=== PATIENT | female | born 1980 | race American Indian/Alaskan Native ===

== ENCOUNTER 2017-10-25 21:18 | Emergency (ER) | payer SELFPAY ==
[2017-10-25 21:44] VITALS: BP 122/85
[2017-10-25] MEDS ORDERED: ASPIRIN PO ONE (21:44)
[2017-10-25 22:17] LABS: Basophils # (Auto) 0.1 K/mm3 (0.0-0.1); Basophils % (Auto) 0.6 % (0.0-1.8); Eosinophils # (Auto) 0.3 K/mm3 (0.0-0.4); Eosinophils % (Auto) 3.1 % (0.0-4.3); Hematocrit 37.5 % (30.3-42.9); Lymphocytes # (Auto) 3.4 K/mm3 (1.2-5.4); Lymphocytes % (Auto) 34.5 % (13.4-35.0); Mean Corpuscular HGB Conc 32 % (30-34); Mean Corpuscular Volume 77 fl (79-97); Monocytes % (Auto) 10.4 % (0.0-7.3); Platelet Count 365 K/mm3 (140-440); Red Blood Count 4.85 M/mm3 (3.65-5.03); Red Cell Distribution Width 15.9 % (13.2-15.2)
[2017-10-25 22:18] LABS: Mean Corpuscular Hemoglobin 25 pg (28-32)
[2017-10-25 22:29] LABS: BUN/Creatinine Ratio 18; Blood Urea Nitrogen 11 mg/dL (7-17); Calcium 9.4 mg/dL (8.4-10.2); Hemolysis Index 1
== END 2017-10-26 21:50 | disposition left against medical advice (07) ==
LOC: ED 21:18
DX: R07.89 Other chest pain (principal); Z53.21 Procedure and treatment not carried out due to patient leaving prior to being seen by health care provider
CPT/HCPCS: 36415; 80048; 84484; 85025; 93005; 93010

== ENCOUNTER 2020-11-10 08:32 | Emergency (ER) | payer MEDICAID, OTHER, SELFPAY ==
[2020-11-10] MEDS ORDERED: SODIUM CHLORIDE 0.9% 1000 ML 1,000 ML IV ONE ×3 (08:59→12:53)
--- NOTE | 2020-11-10 09:13 | Emergency Department Report ---
ED Shortness of Breath HPI - General Chief Complaint: Dyspnea/Respdistress Stated Complaint: SOB,ELEVATED Time Seen by Provider: 11/10/20 08:49 Source: patient Mode of arrival: Stretcher Limitations: No Limitations - History of Present Illness Initial Comments: 40-year-old female with a past medical history of "anxiety" (self diagnosed) and asthma recent Covid pneumonia presents to the hospital with complaints of shortness of breath. Patient states she was lying down and felt short of breath and therefore called EMS. EMS reports the patient had a room air saturation 97% and a temperature 97.4 but she had tachycardia as high as 180s. Albuterol i nhaler was initiated but discontinued due to tachycardia. Patient did state that she did feel some palpitations earlier but denies palpitations in the ED with heart rate of 150s on the monitor. She denies chest pain. Patient reports that she had a positive Covid test on October 28. She developed a low oxygen level and went to [facility] on October 28 and was admitted for Covid pneumonia with hypoxia. She states she had a CT angiogram that was negative for pulmonary embolism and was treated with IV medication for Covid as well as blood thinners. She was discharged on potassium and steroids with last dose of steroid due today. Patient was discharged from the hospital 1 week ago on November 03. Patient states she has been feeling okay other than increased cough, phlegm, and shortness of breath at nighttime. She denies previous history of PE/DVT, control use, dyspnea exertion, calf tenderness, leg edema, fevers, smoking, history of intubations, history of hospitalizations secondary to asthma. Patient does not take any medication for anxiety and denies alcohol or drug abuse. Patient is not vaccinated for Covid - Related Data Previous Rx's Medication Instructions Recorded Last Taken Type Benzonatate [Tessalon Perles] 100 mg PO Q8HR PRN #20 capsule 11/10/20 Unknown Rx Allergies Allergy/AdvReac Type Severity Reaction Status Date / Time No Known Allergies Allergy Verified 10/27/17 09:09 ED Review of Systems ROS: Stated complaint: SOB,ELEVATED Other details as noted in HPI Comment: All other systems reviewed and negative ED Past Medical Hx - Past Medical History Previous Medical History?: Yes Hx GERD: Yes Hx Asthma: Yes - Surgical History Additional Surgical History: - Social History Smoking Status: Never Smoker Substance Use Type: None - Medications Home Medications: Home Medications Medication Instructions Recorded Confirmed Last Taken Type Benzonatate [Tessalon Perles] 100 mg PO Q8HR PRN #20 capsule 11/10/20 Unknown Rx ED Physical Exam - General Limitations: No Limitations - Other Other exam information: General: No acute distress Head: Atraumatic Eyes: normal appearance ENT: Moist mucous membranes Neck: Normal appearance, no midline tenderness Chest: Clear to auscultation bilateral, no respiratory distress or accessory muscle use CV: Tachycardic regular rhythm Abdomen: Soft, normal bowel sounds, nontender, nondistended, no rebound or guarding Back: Normal inspection Extremity: Normal inspection, full range of motion, no calf tenderness or leg Neuro: Alert O x 3, no facial asymmetry, speech clear, no gross motor sensory deficit Psych: Appropriate behavior Skin: No rash ED Course Vital Signs 11/10/20 11/10/20 11/10/20 08:37 08:40 08:46 Temperature 97.4 F L Pulse Rate 153 H 146 H Respiratory 13 20 23 Rate Blood Pressure 96/78 Blood Pressure 138/88 [Right] O2 Sat by Pulse 97 Oximetry 11/10/20 11/10/20 11/10/20 09:00 09:16 09:30 Temperature Pulse Rate 129 H 126 H 120 H Respiratory 25 H 26 H 25 H Rate Blood Pressure 96/78 96/78 96/78 Blood Pressure [Right] O2 Sat by Pulse Oximetry 11/10/20 11/10/20 11/10/20 09:46 10:00 10:16 Temperature Pulse Rate 112 H 115 H 135 H Respiratory 24 27 H 25 H Rate Blood Pressure 149/82 96/78 96/78 Blood Pressure [Right] O2 Sat by Pulse Oximetry 11/10/20 11/10/20 11/10/20 10:30 10:46 11:00 Temperature Pulse Rate 100 H 126 H 102 H Respiratory 22 17 17 Rate Blood Pressure 96/78 96/78 149/82 Blood Pressure [Right] O2 Sat by Pulse 96 98 94 Oximetry 11/10/20 11/10/20 11/10/20 11:16 11:30 11:46 Temperature Pulse Rate 96 H 119 H 113 H Respiratory 22 15 12 Rate Blood Pressure 152/85 158/83 158/83 Blood Pressure [Right] O2 Sat by Pulse 96 97 96 Oximetry 11/10/20 11/10/20 11/10/20 12:00 12:22 12:30 Temperature Pulse Rate 116 H Respiratory 17 Rate Blood Pressure 158/83 139/73 139/73 Blood Pressure [Right] O2 Sat by Pulse 97 86 99 Oximetry 11/10/20 11/10/20 11/10/20 12:46 13:00 13:16 Temperature Pulse Rate 106 H 130 H Respiratory 19 25 H Rate Blood Pressure 139/73 136/85 139/73 Blood Pressure [Right] O2 Sat by Pulse 96 96 95 Oximetry 11/10/20 11/10/20 11/10/20 13:30 13:46 14:00 Temperature Pulse Rate 108 H 103 H 110 H Respiratory 18 26 H 25 H Rate Blood Pressure 139/73 139/73 136/85 Blood Pressure [Right] O2 Sat by Pulse 100 96 97 Oximetry 11/10/20 11/10/20 11/10/20 14:16 14:30 14:46 Temperature Pulse Rate 98 H 100 H 102 H Respiratory 24 25 H 26 H Rate Blood Pressure 130/83 130/83 130/83 Blood Pressure [Right] O2 Sat by Pulse 100 97 98 Oximetry 11/10/20 11/10/20 15:00 15:16 Temperature Pulse Rate 106 H Respiratory 13 20 Rate Blood Pressure 118/73 118/73 Blood Pressure [Right] O2 Sat by Pulse 98 97 Oximetry - Reevaluation(s) Reevaluation #1: 11/10/20 14:56 hr improving, as low as 99 at rest but increases to 118 when I am speaking with patient - Consultations Consultation #1: 11/10/20 09:[address] Orozco on-call portable power tool repairer to review EKG. Agrees that rhythm appears to be sinus tachycardia and not SVT 11/10/20 14:56 Dr Galvan, ID paged. 11/10/20 15:[address] Galvan infectious disease physician. Reviewed results and patient presentation. He does not recommend any specific antibiotics or infectious treatment at this time based on lab at this time. 11/10/20 15:[address] Orozco regarding cardiology on-call once again. Low likelihood for myocarditis given lack of chest pain. 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 No specific cardiac treatment recommended at this time ED Medical Decision Making - Lab Data Result diagrams: 11/10/20 10:00 11/10/20 10:00 Lab Results 11/10/20 11/10/20 11/10/20 Range/Units 09:14 09:14 09:34 WBC (4.5-11.0) K/mm3 RBC (3.65-5.03) M/mm3 Hgb (10.1-14.3) gm/dl Hct (30.3-42.9) % MCV (79-97) fl MCH (28-32) pg MCHC (30-34) % RDW (13.2-15.2) % Plt Count (140-440) K/mm3 Lymph % (Auto) (13.4-35.0) % [place] % (Auto) (0.0-7.3) % Eos % (Auto) (0.0-4.3) % Baso % (Auto) (0.0-1.8) % Lymph # (Auto) (1.2-5.4) K/mm3 [place] # (Auto) (0.0-0.8) K/mm3 Eos # (Auto) (0.0-0.4) K/mm3 Baso # (Auto) (0.0-0.1) K/mm3 Seg Neutrophils % (40.0-70.0) % Seg Neutrophils # (1.8-7.7) K/mm3 D-Dimer 275.23 H (0-234) ng/mlDDU Sodium (137-145) mmol/L Potassium (3.6-5.0) mmol/L Chloride (98-107) mmol/L Carbon Dioxide (22-30) mmol/L Anion Gap mmol/L BUN (7-17) mg/dL Creatinine (0.6-1.2) mg/dL Estimated GFR ml/min BUN/Creatinine Ratio % Glucose (65-100) mg/dL Lactic Acid (0.7-2.0) mmol/L Calcium (8.4-10.2) mg/dL Ferritin (10.0-200.0) ng/mL Total Bilirubin (0.1-1.2) mg/dL AST (5-40) units/L ALT (7-56) units/L Alkaline Phosphatase (35-129) units/L Lactate Dehydrogenase (91-180) units/L Troponin T (0.00-0.029) ng/mL C-Reactive Protein (0.00-1.30) mg/dL Total Protein (6.3-8.2) g/dL Albumin (3.9-5) g/dL Albumin/Globulin Ratio % Procalcitonin (<0.15) ng/mL TSH (0.270-4.200) mlU/mL Free T4 (0.76-1.46) ng/dL HCG, Qual (Negative) Urine Opiates Screen Negative Urine Methadone Screen Negative Ur Barbiturates Screen Negative Ur Phencyclidine Scrn Negative Ur Amphetamines Screen Negative U Benzodiazepines Scrn Negative Urine Cocaine Screen Negative U Marijuana (THC) Screen Negative Drugs of Abuse Note Disclamer Coronavirus (PCR) (Negative) 11/10/20 11/10/20 11/10/20 Range/Units 09:37 09:37 10:00 WBC (4.5-11.0) K/mm3 RBC (3.65-5.03) M/mm3 Hgb (10.1-14.3) gm/dl Hct (30.3-42.9) % MCV (79-97) fl MCH (28-32) pg MCHC (30-34) % RDW (13.2-15.2) % Plt Count (140-440) K/mm3 Lymph % (Auto) (13.4-35.0) % [place] % (Auto) (0.0-7.3) % Eos % (Auto) (0.0-4.3) % Baso % (Auto) (0.0-1.8) % Lymph # (Auto) (1.2-5.4) K/mm3 [place] # (Auto) (0.0-0.8) K/mm3 Eos # (Auto) (0.0-0.4) K/mm3 Baso # (Auto) (0.0-0.1) K/mm3 Seg Neutrophils % (40.0-70.0) % Seg Neutrophils # (1.8-7.7) K/mm3 D-Dimer (0-234) ng/mlDDU Sodium (137-145) mmol/L Potassium (3.6-5.0) mmol/L Chloride (98-107) mmol/L Carbon Dioxide (22-30) mmol/L Anion Gap mmol/L BUN (7-17) mg/dL Creatinine (0.6-1.2) mg/dL Estimated GFR ml/min BUN/Creatinine Ratio % Glucose (65-100) mg/dL Lactic Acid (0.7-2.0) mmol/L Calcium (8.4-10.2) mg/dL Ferritin (10.0-200.0) ng/mL Total Bilirubin (0.1-1.2) mg/dL AST (5-40) units/L ALT (7-56) units/L Alkaline Phosphatase (35-129) units/L Lactate Dehydrogenase (91-180) units/L Troponin T < 0.010 (0.00-0.029) ng/mL C-Reactive Protein (0.00-1.30) mg/dL Total Protein (6.3-8.2) g/dL Albumin (3.9-5) g/dL Albumin/Globulin Ratio % Procalcitonin < 0.05 (<0.15) ng/mL TSH 0.155 L (0.270-4.200) mlU/mL Free T4 1.76 H (0.76-1.46) ng/dL HCG, Qual Negative (Negative) Urine Opiates Screen Urine Methadone Screen Ur Barbiturates Screen Ur Phencyclidine Scrn Ur Amphetamines Screen U Benzodiazepines Scrn Urine Cocaine Screen U Marijuana (THC) Screen Drugs of Abuse Note Coronavirus (PCR) (Negative) 11/10/20 11/10/20 11/10/20 Range/Units 10:00 10:00 10:00 WBC 11.8 H (4.5-11.0) K/mm3 RBC 4.91 (3.65-5.03) M/mm3 Hgb 11.7 (10.1-14.3) gm/dl Hct 37.1 (30.3-42.9) % MCV 76 L (79-97) fl MCH 24 L (28-32) pg MCHC 32 (30-34) % RDW 16.3 H (13.2-15.2) % Plt Count 545 H (140-440) K/mm3 Lymph % (Auto) 6.1 L (13.4-35.0) % [place] % (Auto) 6.4 (0.0-7.3) % Eos % (Auto) 0.0 (0.0-4.3) % Baso % (Auto) 0.1 (0.0-1.8) % Lymph # (Auto) 0.7 L (1.2-5.4) K/mm3 [place] # (Auto) 0.8 (0.0-0.8) K/mm3 Eos # (Auto) 0.0 (0.0-0.4) K/mm3 Baso # (Auto) 0.0 (0.0-0.1) K/mm3 Seg Neutrophils % 87.4 H (40.0-70.0) % Seg Neutrophils # 10.3 H (1.8-7.7) K/mm3 D-Dimer (0-234) ng/mlDDU Sodium 139 (137-145) mmol/L Potassium 3.9 (3.6-5.0) mmol/L Chloride 104.5 (98-107) mmol/L Carbon Dioxide 21 L (22-30) mmol/L Anion Gap 17 mmol/L BUN 8 (7-17) mg/dL Creatinine 0.5 L (0.6-1.2) mg/dL Estimated GFR > 60 ml/min BUN/Creatinine Ratio 16 % Glucose 194 H (65-100) mg/dL Lactic Acid 2.20 H* (0.7-2.0) mmol/L Calcium 10.0 (8.4-10.2) mg/dL Ferritin (10.0-200.0) ng/mL Total Bilirubin 0.30 (0.1-1.2) mg/dL AST 17 (5-40) units/L ALT 32 (7-56) units/L Alkaline Phosphatase 66 (35-129) units/L Lactate Dehydrogenase 263 H (91-180) units/L Troponin T (0.00-0.029) ng/mL C-Reactive Protein 0.20 (0.00-1.30) mg/dL Total Protein 7.4 (6.3-8.2) g/dL Albumin 4.0 (3.9-5) g/dL Albumin/Globulin Ratio 1.2 % Procalcitonin (<0.15) ng/mL TSH (0.270-4.200) mlU/mL Free T4 (0.76-1.46) ng/dL HCG, Qual (Negative) Urine Opiates Screen Urine Methadone Screen Ur Barbiturates Screen Ur Phencyclidine Scrn Ur Amphetamines Screen U Benzodiazepines Scrn Urine Cocaine Screen U Marijuana (THC) Screen Drugs of Abuse Note Coronavirus (PCR) (Negative) 11/10/20 11/10/20 11/10/20 Range/Units 10:00 12:01 14:43 WBC (4.5-11.0) K/mm3 RBC (3.65-5.03) M/mm3 Hgb (10.1-14.3) gm/dl Hct (30.3-42.9) % MCV (79-97) fl MCH (28-32) pg MCHC (30-34) % RDW (13.2-15.2) % Plt Count (140-440) K/mm3 Lymph % (Auto) (13.4-35.0) % [place] % (Auto) (0.0-7.3) % Eos % (Auto) (0.0-4.3) % Baso % (Auto) (0.0-1.8) % Lymph # (Auto) (1.2-5.4) K/mm3 [place] # (Auto) (0.0-0.8) K/mm3 Eos # (Auto) (0.0-0.4) K/mm3 Baso # (Auto) (0.0-0.1) K/mm3 Seg Neutrophils % (40.0-70.0) % Seg Neutrophils # (1.8-7.7) K/mm3 D-Dimer (0-234) ng/mlDDU Sodium (137-145) mmol/L Potassium (3.6-5.0) mmol/L Chloride (98-107) mmol/L Carbon Dioxide (22-30) mmol/L Anion Gap mmol/L BUN (7-17) mg/dL Creatinine (0.6-1.2) mg/dL Estimated GFR ml/min BUN/Creatinine Ratio % Glucose (65-100) mg/dL Lactic Acid 2.60 H* 2.20 H* (0.7-2.0) mmol/L Calcium (8.4-10.2) mg/dL Ferritin 35.7 (10.0-200.0) ng/mL Total Bilirubin (0.1-1.2) mg/dL AST (5-40) units/L ALT (7-56) units/L Alkaline Phosphatase (35-129) units/L Lactate Dehydrogenase (91-180) units/L Troponin T (0.00-0.029) ng/mL C-Reactive Protein (0.00-1.30) mg/dL Total Protein (6.3-8.2) g/dL Albumin (3.9-5) g/dL Albumin/Globulin Ratio % Procalcitonin (<0.15) ng/mL TSH (0.270-4.200) mlU/mL Free T4 (0.76-1.46) ng/dL HCG, Qual (Negative) Urine Opiates Screen Urine Methadone Screen Ur Barbiturates Screen Ur Phencyclidine Scrn Ur Amphetamines Screen U Benzodiazepines Scrn Urine Cocaine Screen U Marijuana (THC) Screen Drugs of Abuse Note Coronavirus (PCR) (Negative) - EKG Data -: EKG Interpreted by Me EKG shows normal: sinus rhythm, ST-T waves (No STEMI) Rate: tachycardia (150) - EKG Data 11/10/20 09:14 EMS EKG performed 8:03 sinus HR 131 8:19AM: Sinus tach heart rate 172 - Radiology Data Radiology results: report reviewed CHEST 1 VIEW INDICATION / CLINICAL INFORMATION: sob. COMPARISON: None available. FINDINGS: SUPPORT DEVICES: None. HEART / MEDIASTINUM: No significant abnormality. LUNGS / PLEURA: No significant pulmonary or pleural abnormality. No pneumothorax. ADDITIONAL FINDINGS: No significant additional findings. IMPRESSION: 1. No acute findings. CTA CHEST WITH CONTRAST INDICATION / CLINICAL INFORMATION: sob, tachycardia, recent covid OMNIPAQUE 350 100ML. TECHNIQUE: Axial CT images were obtained through the chest after injection of IV contrast. 3 plane MIP and/or 3D reconstructions were produced. All CT scans at this location are performed using CT dose reduction for ALARA by means of automated exposure control. COMPARISON: None available. FINDINGS: PULMONARY ARTERIES: No pulmonary emboli. THORACIC AORTA: No significant abnormality. HEART: No significant abnormality. CORONARY ARTERY CALCIFICATION: None. MEDIASTINUM / ELIZABETH: No significant abnormality. PLEURA: No pleural effusion. No pneumothorax. LUNGS: Patchy groundglass and reticular opacities involving the bilateral lower lobes and inferior lingula ADDITIONAL FINDINGS: None. UPPER ABDOMEN: No acute findings. SKELETAL STRUCTURES: No significant osseous abnormality. IMPRESSION: 1. No CT evidence for pulmonary embolism. 2. Multilobar pneumonia, suspicious for atypical and viral etiology. - Medical Decision Making 40-year-old female presents to the hospital with cough, shortness of breath, and tachycardia. Heart rate has improved with IV fluids. Patient symptoms are a lso improved. Patient complains of shortness of breath primarily with coughing and denies dyspnea exertion. No ambulatory oxygen desaturation. CT angiogram negative for pulmonary embolism or positive for persistent infiltrates. Repeat Covid test is negative. Prolactin negative. Lactic acid has not increased significant during ED stay and is decreasing with IV fluids. Patient treated with 3 L of normal saline and Tessalon Perles for cough. Breath sounds clear. Case discussed with infectious disease who does not recommend any infectious treatment at this time. Case discussed with cardiology who does not recommend any specific cardiac treatment at this time. Symptoms suggestive of post Covid syndrome and possible volume depletion given positive response to IV fluids. Patient's TSH is slightly lower than normal as well as slightly elevated T4. Patient does not have signs of thyroid storm at this time and outpatient endocrine follow-up will be advised. I also suspect that patient has a component of anxiety. Resting heart rate is 100 and then when I entered the room goes up to 130s. Then while talking to patient heart rate settled back down to 100. I am hesitant to prescribe a benzodiazepine at this time due to risk of respiratory depression and risk of habitual use and would advise follow-up for definitive treatment. patient will be discharged to follow-up with primary care and to continue to monitor oxygen saturation, heart rate, and symptoms as outpatient Diagnosis, discharge planning and follow-up explained to patient and questions were answered prior to discharge Critical Care Time: No Critical care attestation.: If time is entered above; I have spent that time in minutes in the direct care of this critically ill patient, excluding procedure time. ED Disposition Clinical Impression: Post-COVID syndrome, Tachycardia, Low TSH level, Anxiety Disposition: HOME / SELF CARE / HOMELESS Is pt being admited?: No Does the pt Need Aspirin: No Condition: Stable Instructions: COVID-19, Sinus Tachycardia, Managing Anxiety, Adult Additional Instructions: Take the medication as prescribed. Follow-up with your doctor or doctor/clinic provided. Return if symptoms worsen as indicated by your discharge instructions . Prescriptions: Benzonatate [Tessalon Perles] 100 mg PO Q8HR PRN #20 capsule PRN Reason: Cough Referrals: PRIMARY CARE, [Primary Care Provider] - 3-5 Days [facility] [Provider Group] - 3-5 Days ([employer] for thyroid evaluation) FINA GILLESPIE MD [Staff Physician] - 3-5 Days (Primary care doctor) [facility] [Provider Group] - 3-5 Days (Primary care clinic) Time of Disposition: 16:02
[2020-11-10 09:32] LABS: Amphetamine Screen,Urine Negative; Benzodiazepines Screen,Urine Negative; Cannabinoid Screen,Urine Negative; Cocaine Screen,Urine Negative; Methadone Screen,Urine Negative; Opiate Screen,Urine Negative
[2020-11-10 10:39] LABS: Alanine Aminotransferase 32 units/L (7-56); Blood Urea Nitrogen 8 mg/dL (7-17); Hemolysis Index 8
[2020-11-10 10:44] LABS: Basophils % (Auto) 0.1 % (0.0-1.8); Hematocrit 37.1 % (30.3-42.9); Hemoglobin 11.7 gm/dl (10.1-14.3); Lymphocytes # (Auto) 0.7 K/mm3 (1.2-5.4); Lymphocytes % (Auto) 6.1 % (13.4-35.0); Mean Corpuscular HGB Conc 32 % (30-34); Mean Corpuscular Volume 76 fl (79-97); Monocytes # (Auto) 0.8 K/mm3 (0.0-0.8); Monocytes % (Auto) 6.4 % (0.0-7.3); Platelet Count 545 K/mm3 (140-440); Red Blood Count 4.91 M/mm3 (3.65-5.03); Red Cell Distribution Width 16.3 % (13.2-15.2)
[2020-11-10 11:09] LABS: BUN/Creatinine Ratio 16
--- NOTE | 2020-11-10 13:05 | Cat Scan Report ---
CTA CHEST WITH CONTRAST INDICATION / CLINICAL INFORMATION: sob, tachycardia, recent covid OMNIPAQUE 350 100ML. TECHNIQUE: Axial CT images were obtained through the chest after injection of IV contrast. 3 plane [place] P and/or 3D reconstructions were produced. All CT scans at this location are performed using CT dose reduction for ALARA by means of automated exposure control. COMPARISON: None available. FINDINGS: PULMONARY ARTERIES: No pulmonary emboli. THORACIC AORTA: No significant abnormality. HEART: No significant abnormality. CORONARY ARTERY CALCIFICATION: None. MEDIASTINUM / ELIZABETH: No significant abnormality. PLEURA: No pleural effusion. No pneumothorax. LUNGS: Patchy groundglass and reticular opacities involving the bilateral lower lobes and inferior li ngula ADDITIONAL FINDINGS: None. UPPER ABDOMEN: No acute findings. SKELETAL STRUCTURES: No significant osseous abnormality. IMPRESSION: 1. No CT evidence for pulmonary embolism. 2. Multilobar pneumonia, suspicious for atypical and viral etiology. Signer Name: Donn Rollins MD Signed: 11/10/2020 1:01 PM Workstation Name: [id number]
--- NOTE | 2020-11-10 13:24 | XRay Report ---
CHEST 1 VIEW INDICATION / CLINICAL INFORMATION: sob. COMPARISON: None available. FINDINGS: SUPPORT DEVICES: None. HEART / MEDIASTINUM: No significant abnormality. LUNGS / PLEURA: No significant pulmonary or pleural abnormality. No pneumothorax. ADDITIONAL FINDINGS: No significant additional findings. IMPRESSION: 1. No acute findings. Signer Name: Donn Rollins MD Signed: 11/10/2020 1:20 PM Workstation Name: [id number]
[2020-11-10 13:37] LABS: Free T4 (Free Thyroxine) 1.76 ng/dL (0.76-1.46)
[2020-11-10] MEDS ORDERED: BENZONATATE 100 MG CAP PO ONE (14:54)
[2020-11-10 16:48] VITALS: BP 112/71
--- NOTE | 2020-11-10 17:25 | Electrocardiograph Report ---
[facility] Test Date: 2020-11-10 Test Time: 08:39:20 Pat Name: PRASANNA JURADO Department: Room: Gender: F Pelts Skinner: ROBERT GONZALEZB: 1980 Requested By: NYASIA MICHELLE Order Number: [id number] Reading MD: Evan Washington Measurements Intervals [place] Rate: 150 P: 55 [place]: 101 QRS: -75 QRSD: 75 T: -25 QT: 289 QTc: 457 Interpretive Statements Sinus or supraventricular tachycardia Inferior infarct, old Consider old anterior infarct No previous ECG available for comparison Electronically Signed On 11-10-2020 17:25:35 EDT by Evan Washington
== END 2020-11-10 17:00 | disposition home or self-care (01) ==
LOC: ED 08:32
DX: F41.9 Anxiety disorder, unspecified (principal); B94.8 Sequelae of other specified infectious and parasitic diseases; R79.89 Other specified abnormal findings of blood chemistry; R00.0 Tachycardia, unspecified; K21.9 Gastro-esophageal reflux disease without esophagitis; J45.909 Unspecified asthma, uncomplicated; Z20.822 Contact with and (suspected) exposure to COVID-19; Z98.890 Other specified postprocedural states; Z79.899 Other long term (current) drug therapy
CPT/HCPCS: 36415; 71045; 71275; 80053; 80307; 82140; 82728; 83615; 84145; 84439; 84443; 84484; 84703; 85025; 85379; 86140; 87040; 93005; 99285; J7030; Q9967; U0003

== ENCOUNTER 2020-11-14 05:51 | Emergency (ER) | payer SELFPAY ==
[2020-11-14 05:55] VITALS: BP 122/79
[2020-11-14] MEDS ORDERED: ASPIRIN 325 MG TAB PO ONE (05:56)
--- NOTE | 2020-11-14 06:26 | XRay Report ---
CHEST 2 VIEWS INDICATION / CLINICAL INFORMATION: Chest pain FINDINGS: SUPPORT DEVICES: None. HEART / MEDIASTINUM: No significant abnormality. LUNGS / PLEURA: No significant pulmonary or pleural abnormality. No pneumothorax. ADDITIONAL FINDINGS: No significant additional findings. IMPRESSION: 1. No acute findings. Signer Name: Sheldon Winters MD Signed: 11/14/2020 6:21 AM Workstation Name: [id number]
[2020-11-14 06:34] LABS: Basophils % (Auto) 0.2 % (0.0-1.8); Eosinophils % (Auto) 0.3 % (0.0-4.3); Hematocrit 36.7 % (30.3-42.9); Hemoglobin 11.5 gm/dl (10.1-14.3); Lymphocytes # (Auto) 3.5 K/mm3 (1.2-5.4); Lymphocytes % (Auto) 30.2 % (13.4-35.0); Mean Corpuscular HGB Conc 32 % (30-34); Mean Corpuscular Volume 75 fl (79-97); Monocytes # (Auto) 1.2 K/mm3 (0.0-0.8); Monocytes % (Auto) 10.6 % (0.0-7.3); Platelet Count 547 K/mm3 (140-440); Red Blood Count 4.89 M/mm3 (3.65-5.03); Red Cell Distribution Width 16.6 % (13.2-15.2)
[2020-11-14 06:51] LABS: Alanine Aminotransferase 25 units/L (7-56); Albumin 3.7 g/dL (3.9-5); BUN/Creatinine Ratio 18; Blood Urea Nitrogen 9 mg/dL (7-17); Calcium 9.5 mg/dL (8.4-10.2); Hemolysis Index 6
--- NOTE | 2020-11-14 10:15 | Emergency Department Report ---
- General Chief Complaint: Chest Pain Stated Complaint: CHEST PAIN Time Seen by Provider: 11/14/20 10:07 Source: patient Mode of arrival: Ambulatory Limitations: No Limitations - History of Present Illness Initial Comments: Patient is a 40-year-old female presents emergency room complaints of a persistent dry cough for 3 weeks. She states that she tested positive for COVID-19 on October 28. She reports that she was hospitalized for 5 days due to Covid pneumonia but was never placed on a ventilator or BiPAP. She did not have to go home on oxygen. She states that she was discharged home on blood thinners and reports she has been taking them. She states that her cough is worse at night and after coughing she feels short of breath. She has no shortness of breath currently. She denies any pleuritic pain, chest pain, leg swelling, fever, vomiting, diarrhea. Past medical history of asthma and GERD. No allergies to medications. Patient had a CTA chest performed at this facility on 11/10/2020 which showed no signs of PE. Patient did not get vaccinated for COVID-19. She did not follow-up with a primary care doctor. - Related Data Previous Rx's Medication Instructions Recorded Last Taken Type Benzonatate [Tessalon Perles] 100 mg PO Q8HR PRN #20 capsule 11/14/20 Unknown Rx guaiFENesin ER [Mucinex ER] 600 mg PO Q12H #14 tablet.er 11/14/20 Unknown Rx Allergies Allergy/AdvReac Type Severity Reaction Status Date / Time No Known Allergies Allergy Verified 10/27/17 09:09 ED Review of Systems ROS: Stated complaint: CHEST PAIN Other details as noted in HPI Comment: All other systems reviewed and negative ED Past Medical Hx - Past Medical History Previous Medical History?: Yes Hx GERD: Yes Hx Asthma: Yes - Surgical History Past Surgical History?: Yes Additional Surgical History: - Social History Smoking Status: Never Smoker Substance Use Type: None - Medications Home Medications: Home Medications Medication Instructions Recorded Confirmed Last Taken Type Benzonatate [Tessalon Perles] 100 mg PO Q8HR PRN #20 capsule 11/14/20 Unknown Rx guaiFENesin ER [Mucinex ER] 600 mg PO Q12H #14 tablet.er 11/14/20 Unknown Rx ED Physical Exam - General Limitations: No Limitations General appearance: alert, in no apparent distress - Head Head exam: Present: atraumatic, normocephalic - Eye Eye exam: Present: normal appearance - ENT ENT exam: Present: mucous membranes moist - Respiratory Respiratory exam: Present: normal lung sounds bilaterally. Absent: respiratory distress, wheezes, rales, rhonchi, stridor, chest wall tenderness, accessory muscle use, decreased breath sounds, prolonged expiratory - Cardiovascular Cardiovascular Exam: Present: regular rate, normal rhythm, normal heart sounds. Absent: systolic murmur, diastolic murmur, rubs, gallop - Neurological Exam Neurological exam: Present: alert, oriented X3 - Psychiatric Psychiatric exam: Present: normal affect, normal mood - Skin Skin exam: Present: warm, dry, intact ED Course Vital Signs 11/14/20 11/14/20 05:52 10:13 Temperature 98.4 F Pulse Rate 85 78 Respiratory 18 Rate Blood Pressure 122/79 [Left] O2 Sat by Pulse 96 100 Oximetry ED Medical Decision Making - Lab Data Result diagrams: 11/14/20 06:02 11/14/20 06:02 Lab Results 11/14/20 11/14/20 11/14/20 Range/Units 06:02 06:02 09:19 WBC 11.4 H (4.5-11.0) K/mm3 RBC 4.89 (3.65-5.03) M/mm3 Hgb 11.5 (10.1-14.3) gm/dl Hct 36.7 (30.3-42.9) % MCV 75 L (79-97) fl MCH 24 L (28-32) pg MCHC 32 (30-34) % RDW 16.6 H (13.2-15.2) % Plt Count 547 H (140-440) K/mm3 Lymph % (Auto) 30.2 (13.4-35.0) % [place] % (Auto) 10.6 H (0.0-7.3) % Eos % (Auto) 0.3 (0.0-4.3) % Baso % (Auto) 0.2 (0.0-1.8) % Lymph # (Auto) 3.5 (1.2-5.4) K/mm3 [place] # (Auto) 1.2 H (0.0-0.8) K/mm3 Eos # (Auto) 0.0 (0.0-0.4) K/mm3 Baso # (Auto) 0.0 (0.0-0.1) K/mm3 Seg Neutrophils % 58.7 (40.0-70.0) % Seg Neutrophils # 6.7 (1.8-7.7) K/mm3 Sodium 134 L (137-145) mmol/L Potassium 3.5 L (3.6-5.0) mmol/L Chloride 99.5 (98-107) mmol/L Carbon Dioxide 26 (22-30) mmol/L Anion Gap 12 mmol/L BUN 9 (7-17) mg/dL Creatinine 0.5 L (0.6-1.2) mg/dL Estimated GFR > 60 ml/min BUN/Creatinine Ratio 18 % Glucose 110 H (65-100) mg/dL Calcium 9.5 (8.4-10.2) mg/dL Total Bilirubin 0.60 (0.1-1.2) mg/dL AST 13 (5-40) units/L ALT 25 (7-56) units/L Alkaline Phosphatase 62 (35-129) units/L Troponin T < 0.010 < 0.010 (0.00-0.029) ng/mL Total Protein 6.9 (6.3-8.2) g/dL Albumin 3.7 L (3.9-5) g/dL Albumin/Globulin Ratio 1.2 % - EKG Data EKG shows normal: sinus rhythm, axis, intervals, QRS complexes, ST-T waves Rate: normal - Radiology Data Radiology results: report reviewed Ordering Physician: PASCUAL HAYNES MD Date of Service: 11/14/20 Procedure(s): XR chest routine 2V Accession Number(s): [id number] cc: ED MD [place] Fluoro Time In Minutes: CHEST 2 VIEWS INDICATION / CLINICAL INFORMATION: Chest pain FINDINGS: SUPPORT DEVICES: None. HEART / MEDIASTINUM: No significant abnormality. LUNGS / PLEURA: No significant pulmonary or pleural abnormality. No pneumothorax. ADDITIONAL FINDINGS: No significant additional findings. IMPRESSION: 1. No acute findings. Signer Name: Sheldon Winters MD Signed: 11/14/2020 6:21 AM Workstation Name: [id number] Transcribed By: Dictated By: Sheldon Winters MD Electronically Authenticated By: Sheldon Winters MD Signed Date/Time: 11/14/20620 DD/ 7 TD/TT: - Medical Decision Making Patient is a 40-year-old female presents emergency room complaints of a persistent dry cough for 3 weeks. She states that she tested positive for COVID-19 on October 28. She reports that she was hospitalized for 5 days due to Covid pneumonia but was never placed on a ventilator or BiPAP. She did not have to go home on oxygen. She states that she was discharged home on blood thinners and reports she has been taking them. She states that her cough is worse at night and after coughing she feels short of breath. She has no shortness of breath currently. She denies any pleuritic pain, chest pain, leg swelling, fever, vomiting, diarrhea. Past medical history of asthma and GERD. No allergies to medications. Patient had a CTA chest performed at this facility on 11/10/2020 which showed no signs of PE. Patient did not get vaccinated for COVID-19. She did not follow-up with a primary care doctor. Vitals are normal. On repeat of vitals in exam room patient's oxygen saturation is 100% on room air. No abnormality on physical examination as documented in chart. EKG is within normal limits and is improved from previous. Labs are stable. Chest x- ray with no acute process. Patient likely still continuing to experience symptoms from COVID-19. Patient had a recent CTA with no signs of PE. Patient does not have any significant cardiovascular risk factors and her EKG is normal and her troponins are negative x2. Patient given prescription for Mucinex and Tessalon Perles. Advised patient Please take medication as prescribed. Increase your fluid intake. May use a vaporizer or humidifier. May drink warm tea and soup. Follow-up with a primary care doctor. Return to emergency room for any new or worsening symptoms. Critical care attestation.: If time is entered above; I have spent that time in minutes in the direct care of this critically ill patient, excluding procedure time. ED Disposition Clinical Impression: Recurrent dry cough, Chest congestion, Post-COVID syndrome Disposition: HOME / SELF CARE / HOMELESS Is pt being admited?: No Does the pt Need Aspirin: No Condition: Stable Instructions: Cool Mist Vaporizer, COVID-19 Additional Instructions: Please take medication as prescribed. Increase your fluid intake. May use a vaporizer or humidifier. May drink warm tea and soup. Follow-up with a primary care doctor. Return to emergency room for any new or worsening symptoms. Prescriptions: guaiFENesin ER [Mucinex ER] 600 mg PO Q12H #14 tablet.er Benzonatate [Tessalon Perles] 100 mg PO Q8HR PRN #20 capsule PRN Reason: Cough Referrals: TIGIST PEÑALOZA MD [Staff Physician] - 3-5 Days [facility] [Provider Group] - 3-5 Days [facility] [Outside] - 3-5 Days [facility] [Outside] - 3-5 Days Time of Disposition: 10:18 Print Language: URDU
--- NOTE | 2020-11-14 11:19 | Electrocardiograph Report ---
[facility] Test Date: 2020-11-14 Test Time: 06:01:31 Pat Name: PRASANNA JURADO Department: Room: Gender: F Hall Coordinator: LAUREN : 1980 Requested By: ED DOC Order Number: [id number] Reading MD: Luke Foster Measurements Intervals [place] Rate: 69 P: 46 IN: 200 QRS: -3 QRSD: 77 T: 4 QT: 374 QTc: 401 Interpretive Statements Sinus rhythm Compared to ECG 11/10/2020 08:39:20 Supraventricular tachycardia no longer present Myocardial infarct finding no longer present Electronically Signed On 11-14-2020 11:19:28 EDT by Luke Foster
== END 2020-11-14 10:57 | disposition home or self-care (01) ==
LOC: ED 05:51
DX: R05 Cough (principal); R09.89 Other specified symptoms and signs involving the circulatory and respiratory systems; B94.8 Sequelae of other specified infectious and parasitic diseases; K21.9 Gastro-esophageal reflux disease without esophagitis; J45.909 Unspecified asthma, uncomplicated; Z79.899 Other long term (current) drug therapy; Z98.890 Other specified postprocedural states
CPT/HCPCS: 36415; 71046; 80053; 84484; 85025; 93005

== ENCOUNTER 2020-11-23 01:40 | Emergency (ER) | payer SELFPAY ==
[2020-11-23 02:09] VITALS: BP 134/86
== END 2020-11-23 05:39 | disposition left against medical advice (07) ==
LOC: ED 01:40
DX: R09.02 Hypoxemia (principal); Z53.21 Procedure and treatment not carried out due to patient leaving prior to being seen by health care provider
CPT/HCPCS: 93005

== ENCOUNTER 2021-02-22 12:10 | Emergency (ER) | payer SELFPAY ==
--- NOTE | 2021-02-22 12:27 | Emergency Department Report ---
HPI - General Chief Complaint: Arrhythmia/Palpitations Time Seen by Provider: 02/22/21 12:13 - HPI HPI: 40-year-old -Nepalese female presents to the emergency department from home with complaint of some palpitations as if her heartbeat is "irregular" and "it is going very fast." This started yesterday morning after the patient took some [id number] "energy pills" that her daughter had been taking. The patient says that she took 2 of them at that time. She began having the symptoms and call for EMS to evaluate her. They told her that her heartbeat was regular but the patient did not want transfer to the emergency department at that time as she thought that the contents of those energy pills would run its course. However the patient woke up this morning still with the same symptoms. She says that the energy pills had B1, B6, and caffeine. She has a past medical history of asthma and GERD. Patient also questions whether this could be related to having had Covid in October with some "long-haul "symptoms. She denies any tobacco or illicit drug use. She denies any fever, chest pain, shortness of breath, lower extremity swelling, nausea, vomiting or diaphoresis. No recent travel or sick contacts at home. ED Past Medical Hx - Past Medical History Hx GERD: Yes Hx Asthma: Yes - Surgical History Additional Surgical History: - Social History Smoking Status: Never Smoker Substance Use Type: None - Medications Home Medications: Home Medications Medication Instructions Recorded Confirmed Last Taken Type No Known Home Medications [No 02/22/21 02/22/21 Unknown History Reported Home Medications] ED Review of Systems ROS: Stated complaint: HEART PALPITATIONS Other details as noted in HPI Comment: All other systems reviewed and negative Constitutional: denies: chills, fever Eyes: denies: eye pain, vision change ENT: denies: ear pain, throat pain Respiratory: denies: cough, shortness of breath Cardiovascular: palpitations. denies: chest pain, edema Gastrointestinal: denies: abdominal pain, vomiting Genitourinary: denies: dysuria, discharge Musculoskeletal: denies: back pain, arthralgia Skin: denies: rash, lesions Neurological: denies: headache, weakness Physical Exam - Physical Exam Physical Exam: GENERAL: The patient is well-developed well-nourished. HENT: Normocephalic. Atraumatic. Patient has moist mucous membranes. EYES: Extraocular motions are intact. No nystagmus. NECK: Supple. Trachea is midline. CHEST/LUNGS: Clear to auscultation. There is no respiratory distress noted. HEART/CARDIOVASCULAR: Regular. There is no tachycardia. There is no murmur. ABDOMEN: Abdomen is soft, nontender. Patient has normal bowel sounds. SKIN: Skin is warm and dry. NEURO: The patient is awake, alert, and oriented. The patient is cooperative. The patient has no focal neurologic deficits. Normal speech. Cranial nerves II through XII grossly intact. MUSCULOSKELETAL: There is no tenderness or deformity. There is no limitation range of motion. ED Medical Decision Making - Lab Data Result diagrams: 02/22/21 13:15 02/22/21 13:15 Lab Results 02/22/21 02/22/21 02/22/21 Range/Units 13:15 13:15 13:15 WBC 7.3 (4.5-11.0) K/mm3 RBC 4.98 (3.65-5.03) M/mm3 Hgb 11.5 (10.1-14.3) gm/dl Hct 38.7 (30.3-42.9) % MCV 78 L (79-97) fl MCH 23 L (28-32) pg MCHC 30 (30-34) % RDW 17.4 H (13.2-15.2) % Plt Count 378 (140-440) K/mm3 Lymph % (Auto) 24.6 (13.4-35.0) % [place] % (Auto) 9.4 H (0.0-7.3) % Eos % (Auto) 1.2 (0.0-4.3) % Baso % (Auto) 0.6 (0.0-1.8) % Lymph # (Auto) 1.8 (1.2-5.4) K/mm3 [place] # (Auto) 0.7 (0.0-0.8) K/mm3 Eos # (Auto) 0.1 (0.0-0.4) K/mm3 Baso # (Auto) 0.0 (0.0-0.1) K/mm3 Seg Neutrophils % 64.2 (40.0-70.0) % Seg Neutrophils # 4.7 (1.8-7.7) K/mm3 Sodium 139 (137-145) mmol/L Potassium 3.7 (3.6-5.0) mmol/L Chloride 104.8 (98-107) mmol/L Carbon Dioxide 22 (22-30) mmol/L Anion Gap 16 mmol/L BUN 8 (7-17) mg/dL Creatinine 0.5 L (0.6-1.2) mg/dL Estimated GFR > 60 ml/min BUN/Creatinine Ratio 16 % Glucose 95 (65-100) mg/dL Calcium 9.0 (8.4-10.2) mg/dL Magnesium 1.90 (1.7-2.3) mg/dL Troponin T (0.00-0.029) ng/mL TSH 0.613 (0.270-4.200) mlU/mL HCG, Qual (Negative) 02/22/21 02/22/21 Range/Units 13:15 13:15 WBC (4.5-11.0) K/mm3 RBC (3.65-5.03) M/mm3 Hgb (10.1-14.3) gm/dl Hct (30.3-42.9) % MCV (79-97) fl MCH (28-32) pg MCHC (30-34) % RDW (13.2-15.2) % Plt Count (140-440) K/mm3 Lymph % (Auto) (13.4-35.0) % [place] % (Auto) (0.0-7.3) % Eos % (Auto) (0.0-4.3) % Baso % (Auto) (0.0-1.8) % Lymph # (Auto) (1.2-5.4) K/mm3 [place] # (Auto) (0.0-0.8) K/mm3 Eos # (Auto) (0.0-0.4) K/mm3 Baso # (Auto) (0.0-0.1) K/mm3 Seg Neutrophils % (40.0-70.0) % Seg Neutrophils # (1.8-7.7) K/mm3 Sodium (137-145) mmol/L Potassium (3.6-5.0) mmol/L Chloride (98-107) mmol/L Carbon Dioxide (22-30) mmol/L Anion Gap mmol/L BUN (7-17) mg/dL Creatinine (0.6-1.2) mg/dL Estimated GFR ml/min BUN/Creatinine Ratio % Glucose (65-100) mg/dL Calcium (8.4-10.2) mg/dL Magnesium (1.7-2.3) mg/dL Troponin T < 0.010 (0.00-0.029) ng/mL TSH (0.270-4.200) mlU/mL HCG, Qual Negative (Negative) - EKG Data -: EKG Interpreted by Me EKG shows normal: sinus rhythm, axis (Left axis deviation), intervals, QRS complexes (Q waves to the anteroseptal and inferior leads), ST-T waves (T wave inversion isolated to the inferior lead III) Rate: normal - EKG Data When compared to previous EKG there are: changes noted (New Q waves to the anterior and inferior leads when compared to previous from 11/23/2020) Interpretation: other (Sinus rhythm at 78 bpm, left axis deviation, normal intervals, Q waves to the anteroseptal and inferior leads, isolated T wave inversion to lead III) - Radiology Data Radiology results: image reviewed interpreted by me: Chest x-ray does not show any acute process. There are no pleural effusions, obvious pneumonia and there is no pneumothorax. - Medical Decision Making This patient presents to the emergency department with a complaint of some palpitations as if the heart is skipping a beat and beating fast, that has been going on since yesterday morning. The patient took some type of "energy pill" that appears to have about 500 mg of caffeine in it and she took 2 of them. EKG does not show any morphology consistent with ST elevation myocardial infarction or any arrhythmia. Patient's labs have been mostly unremarkable including CBC, metabolic panel, normal thyroid function, negative troponin, and the patient is not . She was reevaluated multiple times her multiple hours and says she is feeling somewhat improved. Vital signs reassuring including being afebrile. Patient appears safe for discharge home at this time. She has good outpatient follow-up with [facility] so she has been instructed to follow-up with both primary care and cardiology. She may need a Holter monitor in the near future. We discussed avoiding any further caffeine or "energy pill" use. She will return to the ER with any worsening of her symptoms or with any acute distress. Critical Care Time: No Critical care attestation.: If time is entered above; I have spent that time in minutes in the direct care of this critically ill patient, excluding procedure time. ED Disposition Clinical Impression: Palpitations Disposition: 01 HOME / SELF CARE / HOMELESS Is pt being admited?: No Condition: Stable Instructions: Palpitations Additional Instructions: Please follow-up with a primary care physician and critical care transport nurse through the [facility] system. You may need a Holter monitor in the near future. Please avoid any further consumption of the energy pills. Please try to avoid any excessive caffeine use. Increase your oral rehydration. Return to the emergency department with any worsening of your symptoms, new or concerning symptoms not addressed during this current emergency department visit, or with any acute distress. Referrals: [facility] [Other] - 2-3 Days Time of Disposition: 15:16
[2021-02-22 13:03] VITALS: BP 128/96
[2021-02-22 14:23] LABS: Basophils % (Auto) 0.6 % (0.0-1.8); Eosinophils # (Auto) 0.1 K/mm3 (0.0-0.4); Eosinophils % (Auto) 1.2 % (0.0-4.3); Lymphocytes # (Auto) 1.8 K/mm3 (1.2-5.4); Lymphocytes % (Auto) 24.6 % (13.4-35.0); Mean Corpuscular HGB Conc 30 % (30-34); Mean Corpuscular Volume 78 fl (79-97); Monocytes # (Auto) 0.7 K/mm3 (0.0-0.8); Monocytes % (Auto) 9.4 % (0.0-7.3); Platelet Count 378 K/mm3 (140-440); Red Blood Count 4.98 M/mm3 (3.65-5.03); Red Cell Distribution Width 17.4 % (13.2-15.2)
[2021-02-22 14:27] LABS: Hematocrit 38.7 % (30.3-42.9); Hemoglobin 11.5 gm/dl (10.1-14.3)
[2021-02-22 14:28] LABS: BUN/Creatinine Ratio 16; Blood Urea Nitrogen 8 mg/dL (7-17); Hemolysis Index 8
--- NOTE | 2021-02-22 14:49 | XRay Report ---
CHEST 2 VIEWS INDICATION: Palpitations. COMPARISON: 11/14/2020 FINDINGS: Support devices: None. Heart: Within normal limits. Lungs/Pleura: No acute air space or interstitial disease. No significant pleural effusion. IMPRESSION: No acute findings. Signer Name: Gregor Jacob MD Signed: 02/22/2021 2:45 PM Workstation Name: [id number]
--- NOTE | 2021-02-23 09:40 | Electrocardiograph Report ---
[facility] Test Date: 2021-02-22 Test Time: 12:43:18 Pat Name: PRASANNA JURADO Department: Room: Gender: F Ekg Monitor Tech: RAH : 1980 Requested By: KARUNA HO Order Number: [id number] Reading MD: Emery Orozco Measurements Intervals [place] Rate: 78 P: 43 CA: 181 QRS: -35 QRSD: 82 T: 17 QT: 378 QTc: 429 Interpretive Statements Sinus rhythm nonspecific st-t Compared to ECG 11/23/2020 02:09:27 Electronically Signed On 02-23-2021 9:40:17 EST by Emery Orozco
== END 2021-02-22 15:26 | disposition home or self-care (01) ==
LOC: ED 12:10
DX: R00.2 Palpitations (principal); J45.909 Unspecified asthma, uncomplicated
CPT/HCPCS: 36415; 71046; 80048; 83735; 84443; 84484; 84703; 85025; 93005; 99284

== ENCOUNTER 2021-03-17 12:16 | Emergency (ER) | payer SELFPAY ==
[2021-03-17 12:25] VITALS: BP 122/81
--- NOTE | 2021-03-17 12:55 | Emergency Department Report ---
ED General Adult HPI - General Chief complaint: Chest Pain Stated complaint: CHEST PAIN Time Seen by Provider: 03/17/21 12:49 Source: patient Mode of arrival: Ambulatory Limitations: No Limitations - History of Present Illness Initial comments: Chief complaint: Chest congestion and chest pain HPI: This is a 40-year-old female with history of asthma and GERD presents with cough and congestion. She has multiple sick contacts at home. She was diagnosed with COVID-19 in October. She was hospitalized for 5 days at [facility]. She is not intermittent chest pain shortness of breath since her diagnosis. She has not received COVID-19 vaccine. 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 She was referred to assistant professor of spanish. She has mild intermittent chest pain which is sharp and tight. According to electronic record, patient had had chest CTA October which revealed multi lobar pneumonia without CT evidence of pulmonary embolism. Patient has had 4 previous ER visits related to chest complaints. She has had 3 chest radiograph since October performed this facility. In total she has had 8 EKGs since 2020. -: Gradual, days(s) (Several days) Location: chest Severity scale (0 -10): 4 Quality: sharp, dull Consistency: intermittent Improves with: none Worsens with: none Associated Symptoms: cough, malaise - Related Data Home Medications Medication Instructions Recorded Confirmed Last Taken No Known Home Medications [No 02/22/21 02/22/21 Unknown Reported Home Medications] Allergies Allergy/AdvReac Type Severity Reaction Status Date / Time No Known Allergies Allergy Verified 10/27/17 09:09 ED Review of Systems ROS: Stated complaint: CHEST PAIN Other details as noted in HPI Comment: All other systems reviewed and negative Constitutional: malaise. denies: chills, fever Respiratory: cough (Dry cough) Cardiovascular: chest pain ED Past Medical Hx - Past Medical History Previous Medical History?: Yes Hx GERD: Yes Hx Asthma: Yes - Surgical History Past Surgical History?: Yes Additional Surgical History: - Social History Smoking Status: Never Smoker Substance Use Type: None - Medications Home Medications: Home Medications Medication Instructions Recorded Confirmed Last Taken Type No Known Home Medications [No 02/22/21 02/22/21 Unknown History Reported Home Medications] ED Physical Exam - General Limitations: No Limitations General appearance: alert, in no apparent distress, other (Well-appearing, no acute distress, nontoxic in appearance) - Head Head exam: Present: atraumatic, normocephalic - Eye Eye exam: Present: normal appearance - ENT ENT exam: Present: mucous membranes moist - Neck Neck exam: Present: normal inspection - Respiratory Respiratory exam: Present: normal lung sounds bilaterally. Absent: respiratory distress, wheezes, rales, rhonchi - Cardiovascular Cardiovascular Exam: Present: regular rate, normal rhythm. Absent: systolic murmur, diastolic murmur, rubs, gallop - GI/Abdominal GI/Abdominal exam: Present: soft, normal bowel sounds. Absent: distended, tenderness, guarding - Extremities Exam Extremities exam: Present: normal inspection - Neurological Exam Neurological exam: Present: alert, oriented X3 - Psychiatric Psychiatric exam: Present: normal affect, normal mood - Skin Skin exam: Present: warm, dry, intact, normal color. Absent: rash ED Course Vital Signs 03/17/21 12:23 Temperature 99.2 F Pulse Rate 90 Respiratory 16 Rate Blood Pressure 122/81 [Left] O2 Sat by Pulse 96 Oximetry ED Medical Decision Making - EKG Data -: EKG Interpreted by Me EKG shows normal: sinus rhythm Rate: normal - EKG Data When compared to previous EKG there are: no significant change 03/17/21 12:55 EKG obtained 1227 EKG interpreted by me Rate 80 bpm normal sinus rhythm left axis deviation no ST elevation nonischemic T wave pattern 03/17/21 12:56 EKG unchanged from 02/22/2021 - Radiology Data Radiology results: report reviewed Patient Name: PRASANNA JURADO Gender: Female Date of : 1980 Referring Provider: JOSE M YORK Organization: [facility] Accession Number: [id number] Requested Date: March 17, 2021 12:49 Report Status: Final Requested Procedure: 1 Procedure Description: XR chest routine 2V Modality: XR Findings Reporting MD: Lalit Suazo Dictation Time: March 17, 2021 12:10 Trim Stencil Maker: Not available [employer] Date: XR chest routine 2V INDICATION / CLINICAL INFORMATION: chest congestion. COMPARISON: 02/22/2021. FINDINGS: SUPPORT DEVICES: None. HEART /PULMONARY VASCULATURE: No significant abnormality. LUNGS / PLEURA: No significant pulmonary or pleural abnormality. No pneumothorax . ADDITIONAL FINDINGS: No significant additional findings. IMPRESSION: 1. No acute findings. Signer Name: Lalit Suazo MD Signed: 03/17/2021 12:10 PM Workstation Name: [id number] - Medical Decision Making Chest pain related to long-haul Covid symptoms. Chest radiograph without acute process. PERC negative for PE. Referred to assistant professor of spanish for further evaluat ion. Considering recurrent chest pain cardiac stress testing will be reassuring to patient. Referral request faxed to [facility] for outpatient cardiac evaluation. Critical care attestation.: If time is entered above; I have spent that time in minutes in the direct care of this critically ill patient, excluding procedure time. ED Disposition Clinical Impression: COVID-19 long hauler Disposition: 01 HOME / SELF CARE / HOMELESS Is pt being admited?: No Does the pt Need Aspirin: No Condition: Stable Referrals: TIGIST PEÑALOZA MD [Staff Physician] - 3-5 Days CHESTER CAMACHO MD [Staff Physician] - 3-5 Days
--- NOTE | 2021-03-17 13:15 | XRay Report ---
XR chest routine 2V INDICATION / CLINICAL INFORMATION: chest congestion. COMPARISON: 02/22/2021. FINDINGS: SUPPORT DEVICES: None. HEART /PULMONARY VASCULATURE: No significant abnormality. LUNGS / PLEURA: No significant pulmonary or pleural abnormality. No pneumothorax. ADDITIONAL FINDINGS: No significant additional findings. IMPRESSION: 1. No acute findings. Signer Name: Lalit Suazo MD Signed: 03/17/2021 1:10 PM Workstation Name: [id number]
--- NOTE | 2021-03-18 09:40 | Electrocardiograph Report ---
[facility] Test Date: 2021-03-17 Test Time: 12:27:37 Pat Name: PRASANNA JURADO Department: Room: Gender: F [employer]: RAH : 1980 Requested By: JOSE M YORK Order Number: [id number] Reading MD: Richard Ham Measurements Intervals [place] Rate: 81 P: 47 RI: 181 QRS: -36 QRSD: 84 T: 17 QT: 376 QTc: 437 Interpretive Statements Sinus rhythm Inferior infarct, old Compared to ECG 02/22/2021 12:43:18 Myocardial infarct finding now present Electronically Signed On 03-18-2021 9:40:04 EST by Richard Ham
== END 2021-03-17 13:56 | disposition home or self-care (01) ==
LOC: ED 12:16
DX: U07.1 COVID-19 (principal); J45.909 Unspecified asthma, uncomplicated; K21.9 Gastro-esophageal reflux disease without esophagitis
CPT/HCPCS: 71046; 93005; 99283